=== PATIENT | female | born 1965 | race Caucasian/White ===

== ENCOUNTER 2020-10-15 09:53 | Inpatient (IN) | payer BC ==
[~2020-10-15] VITALS: Ht 175.3 cm; Wt 99.8 kg
[2020-10-15] MEDS ORDERED: SODIUM CHLORIDE 0.9% 1000ML 1,000 ML IV STA (10:26)
[2020-10-15] MEDS ORDERED: ASPIRIN 81 MG CHEW TAB PO ONE (10:30)
[2020-10-15] MEDS ORDERED: ACETAMINOPHEN 325 MG TAB PO ONE (10:30)
[2020-10-15] MEDS ORDERED: SODIUM CHLORIDE 0.9% 1000ML 1,000 ML IV SCH (10:30)
[2020-10-15] MEDS ORDERED: CEFEPIME HCL 1GM 1 GM in SODIUM CHLORIDE 0.9% 50ML 50 ML IV SCH (10:45)
[2020-10-15 10:57] LABS: BASOPHILS % 0.6 % (0.0-1.0); HEMATOCRIT 40.8 % (34.2-44.1); HEMOGLOBIN 14.5 g/dL (12.0-16.0); LYMPHOCYTES # (AUTO) 0.7 (1.0-3.2); LYMPHOCYTES % 14.5 % (18.0-39.1); MEAN CORPUSCULAR HEMOGLOBIN 30.4 pg (28-32); MEAN CORPUSCULAR HGB CONC 35.5 g/dL (31-35); MEAN CORPUSCULAR VOLUME 85.5 fL (81-99); MONOCYTES # (AUTO) 0.2 (0.2-0.8); MONOCYTES % 4.7 % (4.4-11.3); NEUTROPHILS # (AUTO) 3.9 (2.1-6.9); NEUTROPHILS % 79.6 % (38.7-80.0); PLATELET COUNT 163 x10e3/uL (140-360); RED BLOOD COUNT 4.77 x10e6/uL (3.6-5.1); RED CELL DISTRIBUTION WIDTH 11.8 % (11.7-14.4)
[2020-10-15 11:22] LABS: ALANINE AMINOTRANSFERASE 46 IU/L (0-55); ALBUMIN 3.5 g/dL (3.5-5.0); ALBUMIN/GLOBULIN RATIO 1.1 (0.8-2.0); ALKALINE PHOSPHATASE 68 IU/L (40-150); ANION GAP 14.8 mmol/L (8-16); BLOOD UREA NITROGEN 12 mg/dL (7-26); BUN/CREATININE RATIO 17 (6-25); CALCIUM 8.2 mg/dL (8.4-10.2); CARBON DIOXIDE 19 mmol/L (22-29); CHLORIDE 102 mmol/L (98-107); CREATINE KINASE 37 IU/L (29-168); CREATININE, SERUM 0.69 mg/dL (0.57-1.11); EST GLOMERULAR FILTRATION RATE > 60 ML/MIN (60-); GLUCOSE 118 mg/dL (74-118); POTASSIUM 3.8 mmol/L (3.5-5.1); SODIUM 132 mmol/L (136-145)
[2020-10-15] MEDS ORDERED: SODIUM CHLORIDE 0.9% 50ML 50 ML ONE (11:39)
[2020-10-15] MEDS ORDERED: IOPAMIDOL 370 MG/ML 200 ML INFUS..BTL INJ ONE (11:39)
[2020-10-15 12:50] LABS: CLARITY,URINE SL CLOUDY (CLEAR); COLOR,URINE ORANGE (YELLOW); KETONES,URINE >=160 (NEGATIVE); LEUKOCYTE ESTERASE ,URINE NEGATIVE (NEGATIVE); NITRITE,URINE NEGATIVE (NEGATIVE); PROTEIN,URINE DIPSTICK 1+ (NEGATIVE); URINE UROBILINOGEN 0.2 mg/dL (0.2 - 1)
[2020-10-15 13:04] LABS: BACTERIA,URINE FEW /HPF; EPITHELIAL CELLS,URINE MODERATE /LPF; MUCUS,URINE MODERATE (RARE); RBC,URINE 0-5 /HPF (0-5); WBC,URINE (MAN) 0-5 /HPF (0-5)
[2020-10-15] MEDS: SODIUM CHLORIDE 0.9% 1000ML 1,000 ML IV SCH ×2 (14:17→23:02)
[2020-10-15 15:51] VITALS: BP 120/88
[2020-10-15 16:00] VITALS: BP 120/88
[2020-10-15 17:41] LABS: HIV 1&2 AB SCREEN NON-REACTIVE (NONREACTIVE)
[2020-10-15 17:46] LABS: BASOPHILS # (AUTO) 0.1 (0.0-0.1); BASOPHILS % 1.1 % (0.0-1.0); HEMATOCRIT 41.7 % (34.2-44.1); HEMOGLOBIN 14.1 g/dL (12.0-16.0); LYMPHOCYTES # (AUTO) 1.4 (1.0-3.2); LYMPHOCYTES % 29.9 % (18.0-39.1); MEAN CORPUSCULAR HEMOGLOBIN 30.3 pg (28-32); MEAN CORPUSCULAR HGB CONC 33.8 g/dL (31-35); MEAN CORPUSCULAR VOLUME 89.5 fL (81-99); MONOCYTES # (AUTO) 0.2 (0.2-0.8); NEUTROPHILS # (AUTO) 2.9 (2.1-6.9); NEUTROPHILS % 63.6 % (38.7-80.0); PLATELET COUNT 115 x10e3/uL (140-360); RED BLOOD COUNT 4.66 x10e6/uL (3.6-5.1); RED CELL DISTRIBUTION WIDTH 11.9 % (11.7-14.4)
[2020-10-15] MEDS: ACETAMINOPHEN 325 MG TAB PO PRN (18:10)
[2020-10-15] MEDS ORDERED: SODIUM CHLORIDE 0.9% 500ML 500 ML IV ONE (19:00)
[2020-10-15 19:53] LABS: INR 1.07; PROTHROMBIN TIME 14.6 seconds (11.9-14.5)
[2020-10-15 19:54] LABS: PARTIAL THROMBOPLASTIN TIME 40.5 seconds (23.8-35.5)
[2020-10-15 20:00] VITALS: BP 91/75
[2020-10-15] MEDS: CEFEPIME HCL 1GM 1 GM in SODIUM CHLORIDE 0.9% 50ML 50 ML IV SCH (20:02)
[2020-10-15 20:30] LABS: PLATELET ESTIMATE MODERATELY DECREASED; PLATELET MORPHOLOGY COMMENT NORMAL
[2020-10-15 20:42] VITALS: BP 91/75
[2020-10-15 21:13] LABS: BAND NEUTROPHILS % (MANUAL) 2 %; LYMPHOCYTES % (MANUAL) 24 % (19-48); MONOCYTES % (MANUAL) 6 % (3.4-9.0); NEUTROPHILS % (MANUAL) 67 % (40-74)
[2020-10-15] MEDS ORDERED: KETOROLAC TROMETHAMINE 30 MG/ML VIAL IV STA (22:49)
[2020-10-15] MEDS: ENOXAPARIN SOD INJ 40 MG/0.4 ML SYR SC SCH ×2 (23:05→23:08)
[2020-10-16] VITALS (10 sets, daily range): BP systolic 97–121; BP diastolic 65–83
[2020-10-16] MEDS: ACETAMINOPHEN 325 MG TAB PO PRN ×4 (01:46→18:39)
[2020-10-16 06:12] LABS: BASOPHILS % 1.1 % (0.0-1.0); HEMATOCRIT 35.8 % (34.2-44.1); HEMOGLOBIN 12.6 g/dL (12.0-16.0); LYMPHOCYTES # (AUTO) 0.8 (1.0-3.2); LYMPHOCYTES % 24.1 % (18.0-39.1); MEAN CORPUSCULAR HEMOGLOBIN 31.1 pg (28-32); MEAN CORPUSCULAR HGB CONC 35.2 g/dL (31-35); MEAN CORPUSCULAR VOLUME 88.4 fL (81-99); MONOCYTES # (AUTO) 0.2 (0.2-0.8); MONOCYTES % 6.9 % (4.4-11.3); NEUTROPHILS # (AUTO) 2.4 (2.1-6.9); NEUTROPHILS % 67.3 % (38.7-80.0); PLATELET COUNT 112 x10e3/uL (140-360); RED BLOOD COUNT 4.05 x10e6/uL (3.6-5.1); RED CELL DISTRIBUTION WIDTH 11.9 % (11.7-14.4)
[2020-10-16 06:36] LABS: ALANINE AMINOTRANSFERASE 47 IU/L (0-55); ALBUMIN 2.6 g/dL (3.5-5.0); ALKALINE PHOSPHATASE 47 IU/L (40-150); ANION GAP 11.5 mmol/L (8-16); BLOOD UREA NITROGEN 12 mg/dL (7-26); BUN/CREATININE RATIO 20 (6-25); CALCIUM 7.7 mg/dL (8.4-10.2); CARBON DIOXIDE 21 mmol/L (22-29); CHLORIDE 108 mmol/L (98-107); EST GLOMERULAR FILTRATION RATE > 60 ML/MIN (60-); GLUCOSE 86 mg/dL (74-118); POTASSIUM 3.5 mmol/L (3.5-5.1); SODIUM 137 mmol/L (136-145)
[2020-10-16] MEDS ORDERED: OYST-CAL-D 500MG TABLET PO NR (08:30)
[2020-10-16] MEDS ORDERED: POTASSIUM CHLORIDE 20 MEQ TAB CR PO NR (08:30)
[2020-10-16] MEDS: SODIUM CHLORIDE 0.9% 1000ML 1,000 ML IV SCH ×3 (08:38→21:15)
[2020-10-16] MEDS: CEFEPIME HCL 1GM 1 GM in SODIUM CHLORIDE 0.9% 50ML 50 ML IV SCH ×2 (08:38→20:30)
[2020-10-16] MEDS: TRAMADOL HCL 50 MG TAB PO PRN ×3 (09:15→23:47)
[2020-10-16] MEDS: ENOXAPARIN SOD INJ 40 MG/0.4 ML SYR SC SCH (16:48)
[2020-10-16] MEDS ORDERED: KETOROLAC TROMETHAMINE 30 MG/ML VIAL IV STA (19:21)
[2020-10-16] MEDS ORDERED: ONDANSETRON HCL INJ 2MG/ML 2ML 2 MG/ML VIAL IV PRN (19:30)
[2020-10-17] MEDS: ACETAMINOPHEN 325 MG TAB PO PRN ×2 (05:29→19:48)
[2020-10-17 06:16] LABS: BASOPHILS % 0.9 % (0.0-1.0); HEMATOCRIT 35.8 % (34.2-44.1); HEMOGLOBIN 12.6 g/dL (12.0-16.0); LYMPHOCYTES # (AUTO) 0.7 (1.0-3.2); LYMPHOCYTES % 21.2 % (18.0-39.1); MEAN CORPUSCULAR HEMOGLOBIN 30.8 pg (28-32); MEAN CORPUSCULAR HGB CONC 35.2 g/dL (31-35); MEAN CORPUSCULAR VOLUME 87.5 fL (81-99); MONOCYTES # (AUTO) 0.2 (0.2-0.8); MONOCYTES % 5.5 % (4.4-11.3); NEUTROPHILS # (AUTO) 2.5 (2.1-6.9); NEUTROPHILS % 71.5 % (38.7-80.0); PLATELET COUNT 115 x10e3/uL (140-360); RED BLOOD COUNT 4.09 x10e6/uL (3.6-5.1); RED CELL DISTRIBUTION WIDTH 11.8 % (11.7-14.4)
[2020-10-17 06:34] LABS: ALANINE AMINOTRANSFERASE 50 IU/L (0-55); ALBUMIN 2.8 g/dL (3.5-5.0); ALKALINE PHOSPHATASE 51 IU/L (40-150); ANION GAP 11.1 mmol/L (8-16); BLOOD UREA NITROGEN 13 mg/dL (7-26); BUN/CREATININE RATIO 24 (6-25); CALCIUM 8.1 mg/dL (8.4-10.2); CARBON DIOXIDE 22 mmol/L (22-29); CHLORIDE 107 mmol/L (98-107); CREATININE, SERUM 0.55 mg/dL (0.57-1.11); EST GLOMERULAR FILTRATION RATE > 60 ML/MIN (60-); GLUCOSE 94 mg/dL (74-118); MAGNESIUM 1.9 MG/DL (1.3-2.1); POTASSIUM 4.1 mmol/L (3.5-5.1); SODIUM 136 mmol/L (136-145)
[2020-10-17] MEDS: TRAMADOL HCL 50 MG TAB PO PRN (06:37)
[2020-10-17 07:05] LABS: CALCIUM IONIZED 1.1 mmol/L (1.09-1.30)
[2020-10-17 07:58] VITALS: BP 107/77
[2020-10-17 08:26] VITALS: BP 116/76
[2020-10-17] MEDS: ACETAMIN/BUTALBITAL/CAFFEINE TAB PO PRN ×2 (08:46→14:44)
[2020-10-17] MEDS: SODIUM CHLORIDE 0.9% 1000ML 1,000 ML IV SCH (08:50)
[2020-10-17] MEDS ORDERED: PANTOPRAZOLE SO40 MG PO (09:05)
[2020-10-17] MEDS ORDERED: PROGESTERONE200 MG (09:05)
[2020-10-17] MEDS ORDERED: ZONEGRAN25 MG PO (09:05)
[2020-10-17] MEDS ORDERED: ONDANSETRON ODT8 MG PO (09:05)
[2020-10-17] MEDS ORDERED: CLOPIDOGREL75 MG PO (09:05)
[2020-10-17] MEDS ORDERED: NP THYROID60 MG PO (09:05)
[2020-10-17] MEDS ORDERED: PLAQUENIL200 MG PO (09:05)
[2020-10-17] MEDS: CEFEPIME HCL 1GM 1 GM in SODIUM CHLORIDE 0.9% 50ML 50 ML IV SCH ×2 (09:20→22:09)
[2020-10-17 11:46] VITALS: BP 107/74
[2020-10-17] MEDS ORDERED: ONDANSETRON HCL 4 MG ORAL DISINTEGRATING TAB PO SCH (12:00)
[2020-10-17 12:21] LABS: BAND NEUTROPHILS % (MANUAL) 4 %; LYMPHOCYTES % (MANUAL) 26 % (19-48); MONOCYTES % (MANUAL) 10 % (3.4-9.0); NEUTROPHILS % (MANUAL) 52 % (40-74); PLATELET ESTIMATE MODERATELY DECREASED; PLATELET MORPHOLOGY COMMENT NORMAL; PROMYELOCYTES % (MANUAL) 4 % (0-0); RBC MORPHOLOGY COMMENT NORMAL
[2020-10-17] MEDS: AZITHROMYCIN 500MG/NS 250 ML 250 ML IV SCH (12:38)
[2020-10-17] MEDS ORDERED: ONDANSETRON HCL 4 MG ORAL DISINTEGRATING TAB PO PRN (13:15)
[2020-10-17 16:19] VITALS: BP 121/72
[2020-10-17] MEDS ORDERED: PROCHLORPERAZINE MALEATE TAB 10 MG TAB PO PRN (17:00)
[2020-10-17] MEDS ORDERED: METHYLPREDNISOLONE SOD SUCC 125 MG/2ML VIAL IV ONE (17:00)
[2020-10-17] MEDS ORDERED: MAGNESIUM SULF 1GRAM/DEXTROSE 100 ML IV ONE (17:00)
[2020-10-17] MEDS ORDERED: CYANOCOBALAMIN 1,000 MCG TAB PO ONE (17:00)
[2020-10-17] MEDS ORDERED: DIAZEPAM INJ 5 MG/ML 2 ML IV SCH (17:15)
[2020-10-17] MEDS ORDERED: HEPARIN 25,000 UNIT 1,400 UNIT in DEXTROSE 5% 250ML 250 ML IV SCH (17:30)
[2020-10-17] MEDS ORDERED: HEPARIN 25,000 UNIT DRIP IV ONE (19:26)
[2020-10-17 20:00] VITALS: BP 115/63
[2020-10-17] MEDS ORDERED: ZOLPIDEM TARTRATE 5 MG TAB PO PRN (20:00)
[2020-10-17] MEDS ORDERED: HYDROMORPHONE 1MG/1ML INJ IV PRN (20:00)
[2020-10-17] MEDS: HEPARIN 25,000 UNIT 1,400 UNIT in DEXTROSE 5% 250ML 250 ML IV SCH (20:47)
[2020-10-17 21:58] VITALS: BP 115/63
[2020-10-18] VITALS (8 sets, daily range): BP systolic 95–112; BP diastolic 54–79
[2020-10-18] MEDS ORDERED: IOPAMIDOL 370 MG/ML 200 ML INFUS..BTL INJ ONE (00:14)
[2020-10-18] MEDS ORDERED: SODIUM CHLORIDE 0.9% 50ML 50 ML ONE (00:14)
[2020-10-18] MEDS: HEPARIN 25,000 UNIT 1,400 UNIT in DEXTROSE 5% 250ML 250 ML IV SCH ×2 (05:48→12:00)
[2020-10-18 08:24] LABS: HEMATOCRIT 32.5 % (34.2-44.1); HEMOGLOBIN 11.2 g/dL (12.0-16.0); MEAN CORPUSCULAR HEMOGLOBIN 30.1 pg (28-32); MEAN CORPUSCULAR HGB CONC 34.5 g/dL (31-35); MEAN CORPUSCULAR VOLUME 87.4 fL (81-99); PLATELET COUNT 141 x10e3/uL (140-360); RED BLOOD COUNT 3.72 x10e6/uL (3.6-5.1); RED CELL DISTRIBUTION WIDTH 11.8 % (11.7-14.4)
[2020-10-18 08:45] LABS: ALANINE AMINOTRANSFERASE 45 IU/L (0-55); ALBUMIN 2.5 g/dL (3.5-5.0); ALBUMIN/GLOBULIN RATIO 0.9 (0.8-2.0); ALKALINE PHOSPHATASE 48 IU/L (40-150); ANION GAP 13.9 mmol/L (8-16); BLOOD UREA NITROGEN 9 mg/dL (7-26); BUN/CREATININE RATIO 15 (6-25); CALCIUM 7.6 mg/dL (8.4-10.2); CARBON DIOXIDE 20 mmol/L (22-29); CHLORIDE 102 mmol/L (98-107); CREATININE, SERUM 0.61 mg/dL (0.57-1.11); EST GLOMERULAR FILTRATION RATE > 60 ML/MIN (60-); GLUCOSE 299 mg/dL (74-118); POTASSIUM 3.9 mmol/L (3.5-5.1); SODIUM 132 mmol/L (136-145)
[2020-10-18] MEDS ORDERED: ZONISAMIDE 50 MG CAP PO SCH (09:00)
[2020-10-18] MEDS: FAMOTIDINE 20 MG/2 ML VIAL IV SCH (09:05)
[2020-10-18] MEDS: PANTOPRAZOLE SOD 40 MG TABEC PO SCH (09:05)
[2020-10-18] MEDS: CEFEPIME HCL 1GM 1 GM in SODIUM CHLORIDE 0.9% 50ML 50 ML IV SCH ×2 (09:05→21:00)
[2020-10-18] MEDS: HYDROXYCHLOROQUINE SULFATE 200 MG TAB PO SCH (09:06)
[2020-10-18] MEDS: THYROID 60 MG TAB PO SCH (09:06)
[2020-10-18] MEDS: ZONISAMIDE 50 MG CAP PO SCH (09:06)
[2020-10-18] MEDS: ACETAMIN/BUTALBITAL/CAFFEINE TAB PO PRN ×2 (09:20→18:39)
[2020-10-18 10:45] LABS: LYMPHOCYTES % (MANUAL) 35 % (19-48); MONOCYTES % (MANUAL) 4 % (3.4-9.0); NEUTROPHILS % (MANUAL) 61 % (40-74); PLATELET MORPHOLOGY COMMENT FEW LARGE
[2020-10-18 12:09] LABS: BASOPHILS % 0.5 % (0.0-1.0); HEMATOCRIT 34.9 % (34.2-44.1); HEMOGLOBIN 12.3 g/dL (12.0-16.0); LYMPHOCYTES % 15.2 % (18.0-39.1); MEAN CORPUSCULAR HEMOGLOBIN 30.5 pg (28-32); MEAN CORPUSCULAR HGB CONC 35.2 g/dL (31-35); MEAN CORPUSCULAR VOLUME 86.6 fL (81-99); MONOCYTES # (AUTO) 0.2 (0.2-0.8); MONOCYTES % 3.8 % (4.4-11.3); NEUTROPHILS # (AUTO) 5.1 (2.1-6.9); NEUTROPHILS % 79.2 % (38.7-80.0); PLATELET COUNT 164 x10e3/uL (140-360); RED BLOOD COUNT 4.03 x10e6/uL (3.6-5.1); RED CELL DISTRIBUTION WIDTH 11.7 % (11.7-14.4)
[2020-10-18] MEDS: AZITHROMYCIN 500MG/NS 250 ML 250 ML IV SCH (14:13)
[2020-10-19] VITALS (11 sets, daily range): BP systolic 97–117; BP diastolic 72–83
[2020-10-19 05:40] LABS: BASOPHILS % 0.5 % (0.0-1.0); EOSINOPHILS % 0.1 % (0.0-6.0); HEMATOCRIT 31.5 % (34.2-44.1); HEMOGLOBIN 11.3 g/dL (12.0-16.0); LYMPHOCYTES # (AUTO) 1.7 (1.0-3.2); LYMPHOCYTES % 21.8 % (18.0-39.1); MEAN CORPUSCULAR HGB CONC 35.9 g/dL (31-35); MEAN CORPUSCULAR VOLUME 86.3 fL (81-99); MONOCYTES # (AUTO) 0.4 (0.2-0.8); MONOCYTES % 4.7 % (4.4-11.3); NEUTROPHILS # (AUTO) 5.4 (2.1-6.9); NEUTROPHILS % 70.7 % (38.7-80.0); PLATELET COUNT 181 x10e3/uL (140-360); RED BLOOD COUNT 3.65 x10e6/uL (3.6-5.1); RED CELL DISTRIBUTION WIDTH 11.9 % (11.7-14.4)
[2020-10-19 05:58] LABS: ALANINE AMINOTRANSFERASE 54 IU/L (0-55); ALBUMIN 2.5 g/dL (3.5-5.0); ALKALINE PHOSPHATASE 53 IU/L (40-150); ANION GAP 10.5 mmol/L (8-16); BLOOD UREA NITROGEN 12 mg/dL (7-26); BUN/CREATININE RATIO 21 (6-25); CALCIUM 7.8 mg/dL (8.4-10.2); CARBON DIOXIDE 24 mmol/L (22-29); CHLORIDE 108 mmol/L (98-107); CREATININE, SERUM 0.58 mg/dL (0.57-1.11); EST GLOMERULAR FILTRATION RATE > 60 ML/MIN (60-); GLUCOSE 89 mg/dL (74-118); POTASSIUM 3.5 mmol/L (3.5-5.1); SODIUM 139 mmol/L (136-145)
[2020-10-19] MEDS: PANTOPRAZOLE SOD 40 MG TABEC PO SCH (07:30)
[2020-10-19] MEDS: CEFEPIME HCL 1GM 1 GM in SODIUM CHLORIDE 0.9% 50ML 50 ML IV SCH ×2 (10:43→21:12)
[2020-10-19] MEDS: THYROID 60 MG TAB PO SCH (10:44)
[2020-10-19] MEDS: HYDROXYCHLOROQUINE SULFATE 200 MG TAB PO SCH (10:44)
[2020-10-19] MEDS: FAMOTIDINE 20 MG/2 ML VIAL IV SCH (10:44)
[2020-10-19] MEDS: ZONISAMIDE 50 MG CAP PO SCH (10:44)
[2020-10-19 11:12] LABS: APPEARANCE,CSF CLEAR (CLEAR); COLOR,CSF COLORLESS (COLORLESS); TUBE NUMBER 3
[2020-10-19 11:14] LABS: WHITE BLOOD CELL,CSF 3 cells/uL (0-5)
[2020-10-19] MEDS ORDERED: PROCHLORPERAZINE MALEATE TAB 10 MG TAB PO ONE (12:00)
[2020-10-19] MEDS: AZITHROMYCIN 500MG/NS 250 ML 250 ML IV SCH (12:00)
[2020-10-19] MEDS ORDERED: METHYLPREDNISOLONE SOD SUCC 125 MG/2ML VIAL IV ONE (12:00)
[2020-10-19] MEDS ORDERED: KETOROLAC TROMETHAMINE 30 MG/ML VIAL IV ONE (12:00)
[2020-10-19] MEDS ORDERED: FAMOTIDINE 20 MG/2 ML VIAL IV ONE (12:00)
[2020-10-19] MEDS ORDERED: SUMATRIPTAN SUCCINATE 25 MG TAB PO ONE (12:00)
[2020-10-19] MEDS: PROPRANOLOL HCL 40 MG TAB PO SCH (17:19)
[2020-10-20] VITALS: BP 104/79
[2020-10-20 04:00] VITALS: BP 116/73
[2020-10-20 06:07] VITALS: BP 116/73
[2020-10-20 06:46] LABS: BASOPHILS % 0.4 % (0.0-1.0); HEMATOCRIT 34.3 % (34.2-44.1); HEMOGLOBIN 11.9 g/dL (12.0-16.0); LYMPHOCYTES # (AUTO) 1.7 (1.0-3.2); LYMPHOCYTES % 20.4 % (18.0-39.1); MEAN CORPUSCULAR HEMOGLOBIN 30.4 pg (28-32); MEAN CORPUSCULAR HGB CONC 34.7 g/dL (31-35); MEAN CORPUSCULAR VOLUME 87.7 fL (81-99); MONOCYTES # (AUTO) 0.4 (0.2-0.8); MONOCYTES % 4.4 % (4.4-11.3); NEUTROPHILS % 72.7 % (38.7-80.0); PLATELET COUNT 213 x10e3/uL (140-360); RED BLOOD COUNT 3.91 x10e6/uL (3.6-5.1)
[2020-10-20 08:01] LABS: ALANINE AMINOTRANSFERASE 53 IU/L (0-55); ALBUMIN 2.7 g/dL (3.5-5.0); ALKALINE PHOSPHATASE 56 IU/L (40-150); ANION GAP 11.9 mmol/L (8-16); BLOOD UREA NITROGEN 12 mg/dL (7-26); BUN/CREATININE RATIO 21 (6-25); CALCIUM 8.1 mg/dL (8.4-10.2); CARBON DIOXIDE 22 mmol/L (22-29); CHLORIDE 110 mmol/L (98-107); CREATININE, SERUM 0.56 mg/dL (0.57-1.11); EST GLOMERULAR FILTRATION RATE > 60 ML/MIN (60-); GLUCOSE 105 mg/dL (74-118); MAGNESIUM 2.3 MG/DL (1.3-2.1); POTASSIUM 3.9 mmol/L (3.5-5.1); SODIUM 140 mmol/L (136-145)
[2020-10-20 08:05] VITALS: BP 116/73
[2020-10-20 09:00] VITALS: BP 116/73
[2020-10-20] MEDS ORDERED: PREDNISONE 20 MG TAB PO SCH ×2 (09:00)
[2020-10-20] MEDS: FAMOTIDINE 20 MG/2 ML VIAL IV SCH (09:35)
[2020-10-20] MEDS: PANTOPRAZOLE SOD 40 MG TABEC PO SCH (09:35)
[2020-10-20] MEDS: CEFEPIME HCL 1GM 1 GM in SODIUM CHLORIDE 0.9% 50ML 50 ML IV SCH (09:35)
[2020-10-20] MEDS: PROPRANOLOL HCL 40 MG TAB PO SCH (09:36)
[2020-10-20] MEDS: THYROID 60 MG TAB PO SCH (09:37)
[2020-10-20] MEDS: ZONISAMIDE 50 MG CAP PO SCH (09:37)
[2020-10-20] MEDS: HYDROXYCHLOROQUINE SULFATE 200 MG TAB PO SCH (09:37)
[2020-10-20] MEDS: ACETAMIN/BUTALBITAL/CAFFEINE TAB PO PRN (09:50)
[2020-10-20 11:32] LABS: LYMPHOCYTES % (MANUAL) 15 % (19-48); MONOCYTES % (MANUAL) 2 % (3.4-9.0); NEUTROPHILS % (MANUAL) 82 % (40-74); PLATELET ESTIMATE ADEQUATE; PLATELET MORPHOLOGY COMMENT NORMAL; TEAR DROP CELLS FEW
[2020-10-20 11:33] LABS: OVALOCYTES FEW; RBC MORPHOLOGY COMMENT ABNORMAL
[2020-10-20 12:13] VITALS: BP 101/74
[2020-10-20] MEDS: AZITHROMYCIN 500MG/NS 250 ML 250 ML IV SCH (13:11)
[2020-10-20] MEDS ORDERED: ZONISAMIDE50 MG PO (14:24)
[2020-10-20] MEDS ORDERED: PROPRANOLOL HCL40 MG PO (14:24)
[2020-10-20] MEDS ORDERED: NURTEC ODT75 MG PO (14:24)
[2020-10-20] MEDS ORDERED: PREDNISONE20 MG PO (14:24)
[2020-10-20] MEDS ORDERED: FAMOTIDINE40 MG PO (14:24)
== END 2020-10-20 16:13 | disposition home or self-care (01) | DRG 545 ==
LOC: ER 10:32 → ERHOLD 13:07 → MED/SURG2 15:10 → OBSVTOIN 10-17 11:15
PROVIDERS: ADMIT Internal Medicine; ATTEND Internal Medicine
PROC: 02HV33Z Insertion of Infusion Device into Superior Vena Cava, Percutaneous Approach (ICD-10-PCS; 2020-10-17)
PROC: 009U3ZX Drainage of Spinal Canal, Percutaneous Approach, Diagnostic (ICD-10-PCS; principal; 2020-10-18)
DX: M32.9 Systemic lupus erythematosus, unspecified (principal); J18.9 Pneumonia, unspecified organism; E87.1 Hypo-osmolality and hyponatremia; E87.2 Acidosis; I69.351 Hemiplegia and hemiparesis following cerebral infarction affecting right dominant side; I10 Essential (primary) hypertension; R91.8 Other nonspecific abnormal finding of lung field; G43.909 Migraine, unspecified, not intractable, without status migrainosus; Z86.16 Personal history of COVID-19; Z20.822 Contact with and (suspected) exposure to COVID-19
CPT/HCPCS: 36415; 36569; 62328; 70450; 70460; 70544; 70547; 70551; 71045; 71260; 74177; 74470; 76705; 80053; 81001; 82378; 82550; 82553; 82945; 83605; 83615; 83690; 83735; 84145; 84484; 85007; 85025; 85027; 85379; 85384; 85610; 85651; 85730; 86039; 86140; 86160; 86225; 86301; 86431; 87040; 87070; 87086; 87205; 87390; 87400; 89051; 99284; G0378; G0433; G0435; J0456; J0692; J1170; J1650; J1885; J2405; J2930; J3360; J3475; J7030; J7512; Q0162; Q9967; U0002

== ENCOUNTER 2021-05-14 13:05 | Emergency (ER) | payer BC ==
[~2021-05-14] VITALS: Ht 175.3 cm; Wt 99.8 kg
[~2021-05-14 13:05] MED LIST: CLOPIDOGREL75 MG PO; FAMOTIDINE40 MG PO; NP THYROID60 MG PO; NURTEC ODT75 MG PO; ONDANSETRON ODT8 MG PO; PANTOPRAZOLE SO40 MG PO; PLAQUENIL200 MG PO; PREDNISONE20 MG PO; PROGESTERONE200 MG; PROPRANOLOL HCL40 MG PO; ZONEGRAN25 MG PO; ZONISAMIDE50 MG PO
[2021-05-14] MEDS ORDERED: KETOROLAC TROMETHAMINE 30 MG/ML VIAL IV ONE (13:28)
[2021-05-14] MEDS ORDERED: METOCLOPRAMIDE HCL 10 MG/2ML VIAL IV ONE (13:30)
[2021-05-14] MEDS ORDERED: SODIUM CHLORIDE 0.9% 1000ML 1,000 ML IV SCH (13:30)
[2021-05-14] MEDS ORDERED: DIPHENHYDRAMINE HCL 25 MG CAP PO ONE (13:30)
[2021-05-14 13:38] LABS: BASOPHILS # (AUTO) 0.1 (0.0-0.1); BASOPHILS % 1.4 % (0.0-1.0); EOSINOPHILS # (AUTO) 0.4 (0.0-0.4); EOSINOPHILS % 5.4 % (0.0-6.0); HEMATOCRIT 39.7 % (34.2-44.1); HEMOGLOBIN 13.6 g/dL (12.0-16.0); LYMPHOCYTES # (AUTO) 2.5 (1.0-3.2); LYMPHOCYTES % 34.9 % (18.0-39.1); MEAN CORPUSCULAR HEMOGLOBIN 30.6 pg (28-32); MEAN CORPUSCULAR HGB CONC 34.3 g/dL (31-35); MEAN CORPUSCULAR VOLUME 89.2 fL (81-99); MONOCYTES # (AUTO) 0.5 (0.2-0.8); MONOCYTES % 7.1 % (4.4-11.3); NEUTROPHILS # (AUTO) 3.6 (2.1-6.9); NEUTROPHILS % 51.1 % (38.7-80.0); PLATELET COUNT 266 x10e3/uL (140-360); RED BLOOD COUNT 4.45 x10e6/uL (3.6-5.1); RED CELL DISTRIBUTION WIDTH 12.2 % (11.7-14.4)
[2021-05-14 13:57] LABS: CLARITY,URINE CLEAR (CLEAR); COLOR,URINE YELLOW (YELLOW); KETONES,URINE TRACE (NEGATIVE); LEUKOCYTE ESTERASE ,URINE TRACE (NEGATIVE); NITRITE,URINE NEGATIVE (NEGATIVE); PROTEIN,URINE DIPSTICK NEGATIVE (NEGATIVE); URINE UROBILINOGEN 0.2 mg/dL (0.2 - 1)
[2021-05-14 13:58] LABS: ALBUMIN/GLOBULIN RATIO 1.5 (0.8-2.0); ANION GAP 15.6 mmol/L (8-16); CALCIUM 9.3 mg/dL (8.4-10.2); CREATININE, SERUM 0.81 mg/dL (0.57-1.11); POTASSIUM 3.6 mmol/L (3.5-5.1)
[2021-05-14 14:21] LABS: AMORPHOUS SEDIMENT,URINE MODERATE (FEW); BACTERIA,URINE MODERATE /HPF; EPITHELIAL CELLS,URINE FEW /LPF; WBC,URINE (MAN) 0-5 /HPF (0-5)
== END 2021-05-14 15:44 | disposition home or self-care (01) ==
LOC: ER 13:23
DX: R51.9 Headache, unspecified (principal); M32.9 Systemic lupus erythematosus, unspecified; Z86.73 Personal history of transient ischemic attack (TIA), and cerebral infarction without residual deficits; Z98.84 Bariatric surgery status
CPT/HCPCS: 36415; 70450; 80053; 81001; 84484; 85025; 93005; 99284; J1885; J2765; J7030

== ENCOUNTER 2021-10-09 07:57 | Emergency (ER) | payer BC ==
[~2021-10-09] VITALS: Ht 175.3 cm; Wt 99.8 kg
[2021-10-09 09:30] LABS: BASOPHILS # (AUTO) 0.1 (0.0-0.1); BASOPHILS % 1.2 % (0.0-1.0); EOSINOPHILS # (AUTO) 0.3 (0.0-0.4); EOSINOPHILS % 4.1 % (0.0-6.0); HEMATOCRIT 42.1 % (34.2-44.1); HEMOGLOBIN 14.3 g/dL (12.0-16.0); LYMPHOCYTES # (AUTO) 2.6 (1.0-3.2); LYMPHOCYTES % 39.2 % (18.0-39.1); MEAN CORPUSCULAR HEMOGLOBIN 31.4 pg (28-32); MEAN CORPUSCULAR VOLUME 92.3 fL (81-99); MONOCYTES # (AUTO) 0.4 (0.2-0.8); MONOCYTES % 6.5 % (4.4-11.3); NEUTROPHILS # (AUTO) 3.2 (2.1-6.9); NEUTROPHILS % 48.8 % (38.7-80.0); PLATELET COUNT 235 x10e3/uL (140-360); RED BLOOD COUNT 4.56 x10e6/uL (3.6-5.1); RED CELL DISTRIBUTION WIDTH 12.5 % (11.7-14.4)
[2021-10-09 09:35] LABS: INR 0.93; PROTHROMBIN TIME 13.3 seconds (11.9-14.5)
[2021-10-09 09:36] LABS: PARTIAL THROMBOPLASTIN TIME 27.8 seconds (23.8-35.5)
[2021-10-09] MEDS ORDERED: DONNATAL/LIDOCAINE/MAALOX 30 ML SUSP PO SCH (09:45)
[2021-10-09 09:50] LABS: ALBUMIN 3.5 g/dL (3.5-5.0); ALBUMIN/GLOBULIN RATIO 1.4 (0.8-2.0); ANION GAP 11.7 mmol/L (8-16); CREATININE, SERUM 0.73 mg/dL (0.57-1.11); POTASSIUM 3.7 mmol/L (3.5-5.1)
[2021-10-09] MEDS ORDERED: ONDANSETRON HCL INJ 2MG/ML 2ML 2 MG/ML VIAL IV NR (10:00)
[2021-10-09] MEDS ORDERED: BELLADONNA ALK/PHENOBARBITAL 5 ML UDC ONE (10:08)
[2021-10-09] MEDS ORDERED: MAGNESIUM/ALUMINUM/SIMETHICONE 30 ML UDC ONE (10:08)
[2021-10-09] MEDS ORDERED: ONDANSETRON HCL INJ 2MG/ML 2ML 2 MG/ML VIAL ONE (10:08)
[2021-10-09] MEDS ORDERED: LIDOCAINE VISC 2% SOLN 15 ML UDC ONE (10:08)
[2021-10-09] MEDS ORDERED: CARAFATE1 GM PO (11:52)
[2021-10-09] MEDS ORDERED: PEPCID20 MG PO (11:52)
== END 2021-10-09 12:12 | disposition home or self-care (01) ==
LOC: ER 07:58
DX: R10.13 Epigastric pain (principal); M32.9 Systemic lupus erythematosus, unspecified; Z20.822 Contact with and (suspected) exposure to COVID-19; Z79.01 Long term (current) use of anticoagulants; Z86.73 Personal history of transient ischemic attack (TIA), and cerebral infarction without residual deficits; Z98.84 Bariatric surgery status
CPT/HCPCS: 36415; 71045; 80053; 83690; 83880; 84484; 85025; 85610; 85730; 93005; 99284; J2405; U0002